=== PATIENT | male | born 1960 | race Caucasian/White ===

== ENCOUNTER 2018-07-27 05:18 | Inpatient (IN) | payer OTHER ==
[2018-07-22 09:20] LABS: URINE BILIRUBIN NEGATIVE (Negative); URINE BLOOD NEGATIVE (Negative); URINE CLARITY CLEAR; URINE COLOR YELLOW; URINE GLUCOSE-RANDOM* NEGATIVE (Negative); URINE KETONES NEGATIVE (Negative); URINE LEUKOCYTES-REFLEX NEGATIVE (Negative); URINE NITRITE-REFLEX NEGATIVE (Negative); URINE PROTEIN (DIPSTICK) NEGATIVE (Negative); URINE SPECIFIC GRAVITY <= 1.005 (1.005-1.035); URINE UROBILINOGEN 0.2 E.U./dl (0.2-1.0)
[2018-07-22 09:25] LABS: HEMATOCRIT 48.6 % (42.0-52.0); HEMOGLOBIN 16.5 gm/dL (14.0-18.0); MCH 27.9 pg (26.0-34.0); MCHC 33.9 g/dL (28.0-37.0); MCV 82.2 fL (80.0-100.0); RBC 5.91 mil/uL (4.50-6.00); RDW 14.1 % (10.5-14.5); WBC 7.7 thou/uL (4.0-11.0)
[2018-07-22 09:38] LABS: ALBUMIN 4.1 g/dL (3.4-5.0); CALCIUM 9.4 mg/dL (8.5-10.1); CREATININE 1.1 mg/dL (0.7-1.3); POTASSIUM 4.3 mmol/L (3.5-5.1)
[2018-07-22 09:39] LABS: PROTIME 10.5 Seconds (9.3-11.4)
[~2018-07-27] VITALS: Ht 188 cm; Wt 86.6 kg
[2018-07-27] VITALS (9 sets, daily range): BP systolic 102–147; BP diastolic 67–90
--- NOTE | ~2018-07-27 | O ---
[facility] [place] [address] OPERATIVE REPORT Name: QUYEN GAMEZ Room #: 150-3 ADM IN M.R.#: [id number] Admission: 07/27/18 Attend Phys: Eduard Sandoval MD Discharge: Date of : 58 Report #: [id number] THIS REPORT FOR: //name// CC: Eduard Moulton DATE OF SERVICE: 07/27/2018 PREOPERATIVE DIAGNOSIS: End-stage degenerative osteoarthritis, left hip. POSTOPERATIVE DIAGNOSIS: End-stage degenerative osteoarthritis, left hip. PROCEDURE: Left total hip arthroplasty. SURGEON: Eduard Sandoval MD INDICATIONS: This 58-year-old gentleman complains of severe pain and limited range of motion involving the left hip. He has similar, but less severe problems on the right side. Clinical exam and x-rays reveal severe end-stage degenerative osteoarthritis with complete loss of joint space and collapse of the femoral head with significant deformity and some shortening. We have reviewed treatment options, risks and benefits. He and his understand well and wish to proceed with total hip arthroplasty. DESCRIPTION OF PROCEDURE: The patient was taken to the operating room where he was placed under general anesthesia. Prophylactic intravenous antibiotics were administered. He was turned to the right lateral decubitus position and the left hip, thigh and leg were meticulously prepped and draped. A slightly curving skin incision was made centered over the greater trochanter exposing the posterior aspect of the hip joint. The short external rotators and capsule were taken down and preserved and tagged with several #1 Tevdek sutures. The hip was dislocated and marked degenerative change and deformity of the femoral head was noted. A femoral neck osteotomy was performed and the canal was prepared with reamers and hand broaches. The [employer] noncemented Legion hip system was utilized. A size 14 stem fit nicely. The stem was removed and attention directed to the acetabulum. The acetabulum was sequentially reamed gradually advancing to a 54 mm reamer. A 54 mm 3-hole fenestrated stick tight acetabulum was selected. This was impacted into position in alignment with his true acetabulum, positioning this in about 45 degrees off of vertical and about 20 degrees of anteversion. It seated nicely and appeared to be very secure. In addition, two cancellous screws were placed through the upper aspect of the shell engaging good periacetabular bone. This seemed to add nicely to the cup stability. A 36-mm polyethylene liner was then inserted placing the 20-degree elevated rim at about the 11 o'clock posterior position. This seated nicely and appeared to be secure. The permanent size 14 noncemented Legion femoral stem with a high offset neck length was then selected. This was impacted into the [address] [address] OPERATIVE REPORT Name: QUYEN GAMEZ Room #: 150-3 [facility] IN M.R.#: [id number] Admission: 07/27/18 Attend Phys: Eduard Sandoval MD Discharge: Date of : 58 Report #: [id number] canal. It seated nicely and appeared to be secure. Trial reduction was performed and the hip seemed to be best seated with a +8 mm neck length. The Oxinium 36 mm head size with a +8 mm neck length was selected. This was impacted on to the Art taper neck. It seated nicely and appeared to be secure. Range of motion, alignment, stability and leg length were assessed and felt to be satisfactory. The wound was copiously irrigated. Good hemostasis was established. The capsule and short external rotators were repaired back to bone. A single Hemovac was left in the wound exiting through a separate stab incision. The fascia was closed with #1 Vicryl. The subcutaneous tissues were closed with 0 Monocryl and the skin was closed with skin carson. A sterile dressing was applied. The patient was awakened and returned to recovery room in good condition. <ELECTRONICALLY SIGNED> By: Eduard Sandoval MD 07/27/18 1220 1121 1148 Eduard Sandoval MD /nt
--- NOTE | ~2018-07-27 | D ---
[facility] [place] [address] DISCHARGE SUMMARY Name: QUYEN GAMEZ Room #: 449-I [facility] IN .R.#: [id number] Admission: 07/27/18 Attend Phys: Eduard Sandoval MD Discharge: 07/29/18 Date of : 58 Report #: [id number] THIS REPORT FOR: //name// CC: Eduard Moulton DATE OF SERVICE: 07/29/2018 FINAL DIAGNOSIS: End-stage degenerative osteoarthritis, left hip. OPERATIONS AND PROCEDURES: Left total hip arthroplasty. HISTORY OF PRESENT ILLNESS: This slender, fit, active 58-year-old gentleman presents with severe left hip pain with limited range of motion, weakness and limb shortening. Clinical and radiographic findings are consistent with severe end-stage degenerative osteoarthritis. He has tried conservative measure without benefit and has elected to go ahead with left total hip arthroplasty. HOSPITAL COURSE: The patient was admitted and taken to the operating room on 07/27/2018. He underwent left total hip arthroplasty, which he tolerated quite nicely. Postoperatively, his course was largely unremarkable. He was able to resume a regular diet and begin ambulation with physical therapy assistance. He had minimal Hemovac output and the drain was discontinued. He was on antibiotics for 24 hours and tolerated that well. His pain is minimal and he is doing nicely with either Ultram or low dose hydrocodone. He has advanced well with therapy and seems to be safe and independent with full weightbearing using a walker for balance. He is anxious for discharge home on 07/29/2018. DISCHARGE MEDICATIONS: Include gabapentin 300 mg t.i.d., Ultram 50 mg q. 4 hours p.r.n. for mild pain or hydrocodone 5 mg q. 4 hours p.r.n. for moderate pain. He will continue on aspirin 325 mg daily for anticoagulation prophylaxis. DISCHARGE INSTRUCTIONS: He will continue with appropriate gentle exercise at home and continue with compressive LEWIS hose for prophylaxis. He will call me should there be any problems or questions. He plans for independent exercise at home, but may consider outpatient therapy if symptoms require. He will either call or return to my office in one week for followup and then the following week for suture removal. <ELECTRONICALLY SIGNED> By: Eduard Sandoval MD 07/30/18 0744 1202 1217 Eduard Sandoval MD /nt
[~2018-07-27 05:18] MED LIST: ALEVE220 MG PO; GLUCOSAMINE CH1 EAC7 PO; NEURONTIN 300300 M1 PO
[2018-07-28 05:00] VITALS: BP 100/73
[2018-07-28 05:38] LABS: HEMATOCRIT 37.8 % (42.0-52.0); HEMOGLOBIN 12.8 gm/dL (14.0-18.0); MCH 27.8 pg (26.0-34.0); MCV 81.8 fL (80.0-100.0); RBC 4.62 mil/uL (4.50-6.00); RDW 14.1 % (10.5-14.5); WBC 12.5 thou/uL (4.0-11.0)
[2018-07-28 08:00] VITALS: BP 112/61
[2018-07-28 15:38] VITALS: BP 103/65
[2018-07-28 19:11] VITALS: BP 115/68
[2018-07-29 00:10] VITALS: BP 116/78
[2018-07-29 04:39] VITALS: BP 109/71
[2018-07-29 06:20] LABS: HEMATOCRIT 35.3 % (42.0-52.0); HEMOGLOBIN 11.9 gm/dL (14.0-18.0); MCH 27.9 pg (26.0-34.0); MCHC 33.7 g/dL (28.0-37.0); MCV 82.8 fL (80.0-100.0); RBC 4.26 mil/uL (4.50-6.00); RDW 14.5 % (10.5-14.5); WBC 10.4 thou/uL (4.0-11.0)
[2018-07-29 07:55] VITALS: BP 116/70
[2018-07-29 10:18] VITALS: BP 116/70
[2018-07-29 13:18] VITALS: BP 116/70
== END 2018-07-29 14:46 | disposition home or self-care (01) | DRG 470 ==
LOC: EDBD → 4W 05:18 → TBA 05:18 → PRE 05:38 → 4W 12:46 → PRE 13:48 → ENTRNSPT 07-29 14:33 → EDTRNSPTSTS 07-29 14:34 → 4W 07-29 14:46
PROVIDERS: Orthopaedic Surgery
PROC: 0SRB06Z Replacement of Left Hip Joint with Oxidized Zirconium on Polyethylene Synthetic Substitute, Open Approach (ICD-10-PCS; principal; 2018-07-27)
DX: M16.12 Unilateral primary osteoarthritis, left hip (principal); Z79.82 Long term (current) use of aspirin; Z79.899 Other long term (current) drug therapy; Z83.3 Family history of diabetes mellitus; Z83.6 Family history of other diseases of the respiratory system
CPT/HCPCS: 10047; 50010; 50101; 50382; 50414; 51412; 51771; 53000; 53368; 56521; 56525; 56527; 57103; 62110; 62900; 70005